=== PATIENT | male | born 1960 | race Caucasian/White ===

== ENCOUNTER → 2018-01-05 | Outpatient (CLI) | payer BC ==
[~2018-01-05] VITALS: Ht 190.5 cm; Wt 108.9 kg
[~2018-01-05] MED LIST: ASPI81TA27 PO; CARV12.544 PO; CLON0.1T PO; FURO40TA4 PO; LISI-646 PO; POTA8TAB2 PO; PRAV20TA3 PO; UMEC1INH IN
[2018-01-05 12:57] LABS: Urine WBC None Seen /hpf (0 - 3)
[2018-01-05 13:14] LABS: Basophils # (auto) 0 uL; Basophils % (auto) 0.3 % (0.0-2.0); Eosinophils # (auto) 0.1 uL; Eosinophils % (auto) 0.9 % (0.0-7.0); Lymphocytes # (auto) 1.8 uL; Monocytes # (auto) 0.9 uL; Neutrophils # (auto) 6.9 uL
[2018-01-05 13:16] LABS: Hematocrit 49.5 % (41.0-53.0); Hemoglobin 16.3 g/dL (13.5-17.5); Lymphocytes % (auto) 18.2 % (10.0-50.0); Mean Corpuscular Hemoglobin 35.1 pg (28.0-32.0); Monocytes % (auto) 8.9 % (0.0-12.0); Neutrophils % (auto) 71.7 % (37.0-80.0); Nucleated Red Blood Cells % 0.1 %; Platelet Count (auto) 256 10^3/uL (140-450); Red Blood Cells 4.64 10^6/uL (4.5-5.90); White Blood Cell 9.6 10^3/uL (4.4-10.8)
[2018-01-05 13:20] LABS: Mean Corpuscular Volume 106.6 fL (80.0-100.0)
[2018-01-05 13:30] LABS: BUN/Creatinine Ratio 23.1; Calcium 9.7 mg/dL (8.5-10.1); Potassium 4.1 mmol/L (3.5-5.1)
[2018-01-05 13:33] LABS: INR 0.93 (0.9-1.15); Partial Thromboplastin Time 26.2 sec (23.78-33.04)
[2018-01-05 13:59] LABS: Urine Bacteria NONE SEEN /hpf (None Seen); Urine Blood Negative /uL (Negative); Urine Mucus FEW (None Seen); Urine Specific Gravity 1.007 (1.001-1.035)
== END | disposition home or self-care (01) ==
LOC: LAB 08:00 → EDSTATUS 01-07 10:00
PROVIDERS: ATTEND Urology
DX: C61 Malignant neoplasm of prostate (principal)
CPT/HCPCS: 36415; 80048; 81001; 85025; 85610; 85730; 87086